=== PATIENT | female | born 1995 | race Caucasian/White ===

== ENCOUNTER 2018-02-04 18:03 | Observation (INO) ==
[2018-02-04 18:45] LABS: Bilirubin,Urine Small (Negative); Blood,Urine Negative (Negative); Clarity,Urine Clear (Clear); Color,Urine Dark Yellow (Yellow); Glucose,Urine (UA) Normal (Normal); Ketones,Urine Trace mg/dL (Negative); Leukocyte Esterase,Urine Small (Negative); Nitrite,Urine Negative (Negative); Protein,Urine Trace mg/dL (Neg-Trace); Specific Gravity,Urine 1.026 (1.010-1.025); Urobilinogen,Urine Normal (Normal)
[2018-02-04 18:47] LABS: Bacteria,Urine Many per hpf (None-Few); Hyaline Casts,Urine Few per lpf (None-Few); RBC,Urine 0-3 per hpf (0-3); Squamous Epithelial Cell,Urine Many per lpf (None-Few); WBC,Urine 15-30 per hpf (0-3)
[2018-02-04 19:04] LABS: Amphetamine Screen,Urine Negative ng/mL (Cutoff=1000); Barbiturate Screen,Urine Negative ng/mL (Cutoff=200); Benzodiazepines Screen,Urine Negative ng/mL (Cutoff=200); Cannabinoid Screen,Urine Negative ng/mL (Cutoff = 50); Cocaine Screen,Urine Negative ng/mL (Cutoff= 300); Opiate Screen,Urine Negative ng/mL (Cutoff=300); Phencyclidine Screen,Urine Negative ng/mL (Cutoff=25)
--- NOTE | 2018-02-04 19:04 | OB/GYN Progress Note ---
Date of Encounter: 02/04/18 Time of Encounter: 19:02 - Assessment and Plan (1) 24 weeks gestation of Status: Acute Admitted to observation for complaint of decreased movement, dizziness and headache. FHR appropriate for gestational age. (2) Decreased movement affecting management of Status: Acute Reports decreased movement today. Able to feel multiple movements while here. Qualifiers: Fetus number: single or unspecified fetus Trimester: second trimester Qualified Code(s): O36.8120 - Decreased movements, second trimester, not applicable or unspecified (3) Dizziness Status: Acute Patient reports dizziness throughout . Has been referred to neurology and cardiology for this complaint in the last couple of months. BP 100's over 50's and 60's while here. Discharge from OB service. Patient taken to ER for further evaluation of non-OB related complaints. Subjective - Subjective Principal diagnosis: Decreased movement, dizziness Interval history: Patient arrives with complaints of decreased movement today. Also complaints of dizziness regardless of activity. States she has had a headache today that has not resolved with Tylenol which she last took at 3:00. heart rate 140 bpm and appropriate for gestational age of 24 weeks and 6 days. She has had the complaints of headache and dizziness within the last couple of months. She has been referred to cardiology and had a Holter monitor plus EKG which returned normal. She is also been referred to neurology for the same complaints. The appointment for this is later this month. Previous workup for PIH returned with normal results. Patient felt movement while she was here on the monitor. She will be discharged from OB service and taken to ER for further evaluation. Antepartum ROS: no loss of fluid, no vaginal bleeding Objective - Vital Signs Vital Signs: Intake and Output 02/04/18 02/04/18 02/04/18 07:59 15:59 23:59 Other: Weight 68.039 kg Patient Weight 02/04/18 23:59 Weight 68.039 kg - Exam FHR: auscultation normal FHR comments: FHR 140 bpm, moderate variability. Appropriate for gestational age of 24wd. No uterine activity noted. Auscultation: bilateral: normal Abdomen: Present: normal appearance, soft, gravid Uterus: Present: normal Cervical dilation: deferred - Labs Labs: Abnormal lab results Ur Specific [place] 1.026 (1.010-1.025) H 02/04/18 18:30 Urine Ketones Trace mg/dL (Negative) H 02/04/18 18:30 Urine Bilirubin Small (Negative) H 02/04/18 18:30 Ur Leukocyte Esterase Small (Negative) H 02/04/18 18:30 Urine Microscopic WBC 15-30 per hpf (0-3) H 02/04/18 18:30 Ur Squamous Epith Cells Many per lpf (None-Few) H 02/04/18 18:30 Urine Bacteria Many per hpf (None-Few) H 02/04/18 18:30 Ur Culture Indicated? NO. (NO) A 02/04/18 18:30
== END 2018-02-04 18:45 | disposition home or self-care (01) ==
LOC: 1NENULAB
PROVIDERS: ADMIT Registered Nurse; ATTEND Registered Nurse

== ENCOUNTER → 2018-02-07 21:22 | Observation (INO) ==
[2018-02-07 19:42] LABS: Bilirubin,Urine Negative (Negative); Blood,Urine Negative (Negative); Clarity,Urine Cloudy (Clear); Color,Urine Yellow (Yellow); Glucose,Urine (UA) Normal (Normal); Ketones,Urine Negative (Negative); Leukocyte Esterase,Urine Small (Negative); Nitrite,Urine Negative (Negative); Protein,Urine Negative (Neg-Trace); Specific Gravity,Urine 1.016 (1.010-1.025); Urobilinogen,Urine Normal (Normal)
[2018-02-07 19:44] LABS: Bacteria,Urine Moderate per hpf (None-Few); Hyaline Casts,Urine None Seen per lpf (None-Few); Squamous Epithelial Cell,Urine Many per lpf (None-Few)
[2018-02-07 19:55] LABS: RBC,Urine 0-3 per hpf (0-3)
[2018-02-07 19:58] LABS: Amphetamine Screen,Urine Negative ng/mL (Cutoff=1000); Barbiturate Screen,Urine Negative ng/mL (Cutoff=200); Benzodiazepines Screen,Urine Negative ng/mL (Cutoff=200); Cannabinoid Screen,Urine Negative ng/mL (Cutoff = 50); Cocaine Screen,Urine Negative ng/mL (Cutoff= 300); Opiate Screen,Urine Negative ng/mL (Cutoff=300); Phencyclidine Screen,Urine Negative ng/mL (Cutoff=25)
--- NOTE | 2018-02-07 21:06 | Discharge Summary ---
Date of Encounter: 02/07/18 Time of Encounter: 21:07 - Discharge Diagnosis (1) 25 weeks gestation of Priority: Primary Status: Acute Comments: Admitted to observation for left upper quadrant pain No uterine activity noted on toco monitor. Appropriate FHT for gestation (2) Abdominal pain affecting Priority: Secondary Status: Acute - Discharge Medications Home Medications: Vitamin Tablet 1 tab PO DAILY 02/07/18 [History] Allergies/Adverse Reactions: Allergy/AdvReac Type Severity Reaction Status Date / Time Penicillins Allergy See Verified 06/15/17 10:46 Comments Data Procedures and tests throughout hospitalization: Laboratory Tests 02/07/18 02/07/18 19:30 19:30 Urine Color Yellow Urine Clarity Cloudy A Urine pH 7.0 Ur Specific [place] 1.016 Urine Protein Negative Urine Glucose (UA) Normal Urine Ketones Negative Urine Blood Negative Urine Nitrite Negative Urine Bilirubin Negative Urine Urobilinogen Normal Ur Leukocyte Esterase Small H Urine Microscopic RBC 0-3 Urine Microscopic WBC 5-15 H Ur Squamous Epith Cells Many H Urine Bacteria Moderate H Hyaline Casts None Seen Ur Culture Indicated? NO. A Urine Opiates Screen Negative Ur Barbiturates Screen Negative Ur Phencyclidine Scrn Negative Ur Amphetamines Screen Negative U Benzodiazepines Scrn Negative Urine Cocaine Screen Negative U Marijuana (THC) Screen Negative Ur Drug Screen Interp See Below Labs on day of discharge: Labs from last 24 hours 02/07/18 02/07/18 19:30 19:30 Urine Color Yellow Urine Clarity Cloudy A Urine pH 7.0 Ur Specific [place] 1.016 Urine Protein Negative Urine Glucose (UA) Normal Urine Ketones Negative Urine Blood Negative Urine Nitrite Negative Urine Bilirubin Negative Urine Urobilinogen Normal Ur Leukocyte Esterase Small H Urine Microscopic RBC 0-3 Urine Microscopic WBC 5-15 H Ur Squamous Epith Cells Many H Urine Bacteria Moderate H Hyaline Casts None Seen Ur Culture Indicated? NO. A Urine Opiates Screen Negative Ur Barbiturates Screen Negative Ur Phencyclidine Scrn Negative Ur Amphetamines Screen Negative U Benzodiazepines Scrn Negative Urine Cocaine Screen Negative U Marijuana (THC) Screen Negative Ur Drug Screen Interp See Below Date of admission: 02/07/18 18:30 Discharging clinician: Renetta Hathaway Anticipated date of discharge: 02/07/18 - Patient Status Disposition: Home, Self-Care Condition: Good Functional capacity at discharge: independent ambulation Overall status at discharge: patient is back to baseline - Discharge Instructions - Diet and Activity Activity: resume usual activities as tolerated Diet: regular diet Hospital Course [employer] Hospital course: Tonie reports to L&D this evening with complaint of left upper quadrant pain that started yesterday and has been getting worse. She reports positive activity and denies bleeding and fluid leakage. She reports she hasn't eaten much today due to the pain but denies any nausea or vomiting. Entire abdomen palpated without rebound tenderness or guarding. Plan discussed with Dr. Kaye, to send patient home. Time Attestation: Total time spent providing and/or coordinating discharge services: Time Spent: Less than 30 minutes Exam - Constitutional General appearance IM: A&O X 3, pleasant, no acute distress, answers questions appropriately - Respiratory Respiratory exam: Present: CTAB - Cardiovascular Cardiovascular exam IM: Present: RRR, +S1, +S2 - GI/Abdominal GI/Abdominal exam IM: normal bowel sounds, soft Additional comments: No rebound tenderness. Patient without guarding while entire abdomen palpated. - Rectal Rectal exam: deferred - Extremities Exam Extremities exam IM: Present: full ROM, normal capillary refill, normal inspection - Neurological Exam Neurological exam: alert, normal gait, oriented X3 - VTE Reasons for not Prescribing Prophylaxis: Treatment not Indicated - Low risk for VTE
== END | disposition home or self-care (01) ==
LOC: 1NENULAB
PROVIDERS: ADMIT Registered Nurse; ATTEND Registered Nurse

== ENCOUNTER → 2018-03-26 00:50 | Observation (INO) ==
[2018-03-25 16:19] LABS: Bilirubin,Urine Negative (Negative); Blood,Urine Negative (Negative); Clarity,Urine Cloudy (Clear); Color,Urine Yellow (Yellow); Glucose,Urine (UA) Normal (Normal); Ketones,Urine Negative (Negative); Leukocyte Esterase,Urine Trace (Negative); Nitrite,Urine Negative (Negative); Protein,Urine Trace mg/dL (Neg-Trace); Specific Gravity,Urine 1.014 (1.010-1.025); Urobilinogen,Urine Normal (Normal)
[2018-03-25 16:22] LABS: Bacteria,Urine Moderate per hpf (None-Few); Hyaline Casts,Urine None Seen per lpf (None-Few); RBC,Urine 0-3 per hpf (0-3); Squamous Epithelial Cell,Urine Many per lpf (None-Few)
[2018-03-25 16:28] LABS: Amphetamine Screen,Urine Negative ng/mL (Cutoff=1000); Barbiturate Screen,Urine Negative ng/mL (Cutoff=200); Benzodiazepines Screen,Urine Negative ng/mL (Cutoff=200); Cannabinoid Screen,Urine Negative ng/mL (Cutoff = 50); Cocaine Screen,Urine Negative ng/mL (Cutoff= 300); Opiate Screen,Urine Negative ng/mL (Cutoff=300); Phencyclidine Screen,Urine Negative ng/mL (Cutoff=25)
--- NOTE | 2018-03-25 19:00 | OB/GYN History & Physical ---
Date of Encounter: 03/25/18 Time of Encounter: 18:54 Assessment and Plan (1) 31 weeks gestation of Current visit: Yes Status: Acute (2) labor in second trimester Current visit: Yes Status: Acute Patient initially evaluated cervix was 1-2/75/-3, discuss plan of care with Dr. Houston, steroid course started, fluid bolus and dose of betamethasone given. Repeat cervical exam after 2 hours cervix had changed to 3/80/-3, discussed with Dr. Houston due to cervical change will transfer to [facility]. Plan of care discussed with who accepted patient for transfer. Dr. Morris requests magnesium for neuro protection be started with 6 g bolus followed by 2 g an hour and GBS protocol initiated, due to penicillin allergy with unknown reaction as a child will start vancomycin 1 g Qualifiers: labor delivery status: without delivery Qualified Code(s): O60.02 - labor without delivery, second trimester History of Present Illness Chief complaint: contractions HPI: Ms. Guerra is a 22 year old female 31+6 presents to [facility] with complaints of left hip and occasional abdominal pain, and thinks she lost her mucous plug and pressure. Last intercourse last night, reports good movement, denies vaginal bleeding or leaking of fluid, denies dysuria, flank pain, or any other urinary symptoms. care with nurse midwives uncomplicated course Labs: AB+, rubella and varicella immune, all other serologies negative Past Med Surg Social Fam HX - Past Medical History Medical history: no medical history Additional medical history: vag delivery x2 Psychiatric history: anxiety, ADHD, depression - Past Surgical History Surgical History: no surgical history, other Additional surgical history: [place] teeth, tooth extraction - Social History Smoking Status: Never smoker Smokeless Tobacco Status: No Alcohol use: none Drug use: none - Family History Mother Adopted: No Living Status: Still Living Hx Family Cardiac Disorders: Yes (HTN) Hx Family Respiratory Disorders: Yes (Asthma) Hx Family Cancer: No Hx Family GI Disorders: No Hx Family Endocrine Disorder: Yes (DM) Hx Family Neuromuscular Disorders: No Hx Family Neurologic Disorders: Yes ([place]) Hx Family HEENT Disorders: No Hx Family Autoimmune Disorders: No Obstetrical History - Pregnancies : 4 Para: 2 Term: 2 : 0 Ab's: 1 Livin Medications and Allergies Ondansetron ODT [Zofran ODT] 4 mg SL Q6HR PRN #10 tab.rapdis 02/11/18 [Rx] Pediatric Multivit Comb. No.49 [Flintstones Gummies] 1 tab PO DAILY 03/25/18 [History] Allergy/AdvReac Type Severity Reaction Status Date / Time Penicillins Allergy See Verified 06/15/17 10:46 Comments Exam - Constitutional Constitutional: well developed, well nourished, no acute distress, average body habitus - Neck Neck exam: full ROM - Lungs Respiratory exam: CTAB - Cardiovascular Cardiovascular exam: RRR - Abdomen Abdomen: Present: gravid, non tender - Extremities Extremities exam: normal capillary refill, normal inspection - Vagina Vagina: Present: normal moisture - Cervix Dilation: 3 Effacement: 80 Station: -3 - Anus/Rectum Anus/Rectum: Present: normal perianal skin Results Abnormal lab results Urine Clarity Cloudy (Clear) A 03/25/18 16:05 Ur Leukocyte Esterase Trace (Negative) H 03/25/18 16:05 Urine Microscopic WBC 3-5 per hpf (0-3) H 03/25/18 16:05 Ur Squamous Epith Cells Many per lpf (None-Few) H 03/25/18 16:05 Urine Bacteria Moderate per hpf (None-Few) H 03/25/18 16:05 Ur Culture Indicated? NO. (NO) A 03/25/18 16:05 All other labs normal. - VTE Reasons for not Prescribing Prophylaxis: Treatment not Indicated - Low risk for VTE
[~2018-03-26 00:50] MED LIST: Betamethasone Acet/SodPhos 6 MG/ML MDV IM SCH; Magnesium Sulfate 20 gm/500mL 20 GM/500 ML IV.SOLN IVC SCH; Ringers Solution, Lactated 1,000 ML IVC ONE; Ringers Solution, Lactated 1,000 ML ONE; Terbutaline 1 MG/ML VIAL SQ ONE
== END | disposition other institution (70) ==
LOC: 1NENULAB
PROVIDERS: ADMIT Advanced Practice Midwife; ATTEND Advanced Practice Midwife

== ENCOUNTER 2018-04-14 22:15 | Observation (INO) ==
[2018-04-14 22:38] VITALS: BP 124/63
[2018-04-14 22:43] LABS: Bilirubin,Urine Negative (Negative); Blood,Urine Negative (Negative); Clarity,Urine Clear (Clear); Color,Urine Yellow (Yellow); Glucose,Urine (UA) Normal (Normal); Ketones,Urine Negative (Negative); Leukocyte Esterase,Urine Moderate (Negative); Nitrite,Urine Negative (Negative); Protein,Urine Negative (Neg-Trace); Specific Gravity,Urine < 1.005 (1.010-1.025); Urobilinogen,Urine Normal (Normal)
[2018-04-14 22:45] LABS: Bacteria,Urine Few per hpf (None-Few); Hyaline Casts,Urine None Seen per lpf (None-Few); RBC,Urine 0-3 per hpf (0-3); Squamous Epithelial Cell,Urine Moderate per lpf (None-Few)
--- NOTE | 2018-04-14 22:50 | OB/GYN Progress Note ---
Date of Encounter: 04/14/18 Time of Encounter: 22:47 - Assessment and Plan (1) 34 weeks gestation of Current Visit: Yes Status: Acute admitted for observation (2) NST (non-stress test) reactive on surveillance Current Visit: Yes Status: Acute FHR 125 bpm moderate variability +15x15 accels no decels noted. Irregular contractions noted. Cat. 1 tracing. Subjective - Subjective Principal diagnosis: Vaginal pressure and irregular contractions Interval history: Patient is a 22 y/o @ 34w5d presents to labor and delivery with complaints of vaginal pressure and contractions that are 11-13 min apart. Patient denies LOF or VB. Patient reports on March 25 she was sent to [facility] for labor and was dilated 3cm. Patient reports she received betamethasone on 03/25 and 03/26. Patient reports good movement. Patient denies urinary symptoms. Antepartum ROS: movement normal, contractions, no loss of fluid, no vaginal bleeding Objective - Vital Signs Vital Signs: Vital Signs Pulse Resp BP 04/14/18 22:34 105 15 124/63 Intake and Output 04/14/18 04/14/18 04/14/18 07:59 15:59 23:59 Other: Weight 75.5 kg Patient Weight 04/14/18 23:59 Weight 75.5 kg - Exam FHR: auscultation normal, category 1 FHR comments: 125 bpm moderate variability +15x15 accels no decels noted. Irregular contractions with irritability noted. Cat. 1 tracing. Auscultation: bilateral: normal Abdomen: Present: normal appearance, soft, gravid Uterus: Present: normal, firm Cervical dilation: 3 per RN Cervix effacement: 70 station: bollatable Comments: GBS culture collected prior to exam. - Labs Labs: Abnormal lab results Ur Specific [place] < 1.005 (1.010-1.025) L 04/14/18 22:20 Ur Leukocyte Esterase Moderate (Negative) H 04/14/18 22:20 Urine Microscopic WBC 5-15 per hpf (0-3) H 04/14/18 22:20 Ur Squamous Epith Cells Moderate per lpf (None-Few) H 04/14/18 22:20 Ur Culture Indicated? YES (NO) A 04/14/18 22:20
[2018-04-14 22:54] LABS: Amphetamine Screen,Urine Negative ng/mL (Cutoff=1000); Barbiturate Screen,Urine Negative ng/mL (Cutoff=200); Benzodiazepines Screen,Urine Negative ng/mL (Cutoff=200); Cannabinoid Screen,Urine Negative ng/mL (Cutoff = 50); Cocaine Screen,Urine Negative ng/mL (Cutoff= 300); Opiate Screen,Urine Negative ng/mL (Cutoff=300); Phencyclidine Screen,Urine Negative ng/mL (Cutoff=25)
== END 2018-04-15 01:00 | disposition home or self-care (01) ==
LOC: 1NENULAB
PROVIDERS: ADMIT Advanced Practice Midwife; ATTEND Advanced Practice Midwife

== ENCOUNTER 2018-05-17 09:42 | Inpatient (IN) ==
[2018-05-17] MEDS ORDERED: Famotidine 20 MG/2 ML VIAL IVP PRN (10:25)
[2018-05-17] MEDS ORDERED: Metoclopramide 10 MG/2 ML VIAL IVP PRN ×2 (10:25→16:11)
[2018-05-17] MEDS ORDERED: Ringers Solution, Lactated 1,000 ML IVC SCH (10:30)
[2018-05-17 10:49] LABS: Basophils # 0.1 K/mcL (0.0-0.2); Basophils % 0.6 %; Eosinophils # 0.2 K/mcL (0.0-0.6); Eosinophils % 1.5 %; Hemoglobin 11.5 g/dL (11.5-15.4); Immature Granulocytes % 1.8 % (0-4); Lymphocytes # 2.9 K/mcL (0.6-4.6); Lymphocytes % 23.9 %; Mean Corpuscular HGB Conc 32.9 g/dL (31.6-35.5); Mean Corpuscular Volume 85.4 fL (83.0-100.0); Mean Platelet Volume 11.8 fL (9.4-12.4); Monocytes # 0.9 K/mcL (0.0-1.3); Neutrophils # 7.9 K/mcL (1.6-8.9); Platelet Count 185 K/mcL (140-400); Red Cell Distribution Width 13.9 % (11.5-14.5); Segmented Neutrophils % 65.2 %
--- NOTE | 2018-05-17 10:54 | Anesthesia Evaluation PreOp ---
Date of Encounter: 05/17/18 Time of Encounter: 10:52 - Past History Planned Operation: C section Cardiac History: Denies any Significant Hx Pulmonary History: Denies Any Significant HX CONTACT LENS FLASHING PUNCHER History: Denies Any Significant HX Other Medical History: GERD Anesthesia History: No Prior Anesthetic Complications : Yes Test: Positive Alcohol Use: none Drug use: none Medications and Allergies Ondansetron ODT [Zofran ODT] 4 mg SL Q6HR PRN #10 tab.rapdis 02/11/18 [Rx] Pediatric Multivit Comb. No.49 [Flintstones Gummies] 1 tab PO DAILY 03/25/18 [History] Benadryl 50 mg PO HS 05/17/18 [History] Allergy/AdvReac Type Severity Reaction Status Date / Time Penicillins Allergy See Verified 06/15/17 10:46 Comments - Meds/Allergy Pre-op Review Medications Reviewed: Yes Allergies Reviewed: Yes Beta Blockers on Current Med List: No Anesthesia Results - Labs 05/17/18 10:12 Anesthesia Exam 109/76 108 16 fht 166 Height: 5'2" Weight: 77k NPO (# of Hours): 12 Pain Scale: 1 Pain Scale Used: Numeric (1 - 10) - HEENT Pupil (Motor): Pupils equal Mallampati: II Teeth: Normal Oral Opening: Greater than 3 - CONTACT LENS FLASHING PUNCHER LOC: Oriented CONTACT LENS FLASHING PUNCHER Motor: Normal RUE, Normal LUE, Normal RLE, Normal LLE, Normal Face CONTACT LENS FLASHING PUNCHER Sensory: Normal: RUE, LUE, RLE, LLE, Face - Cardiac Rhythm: Regular Murmur: None - Pulmonary Breath Sounds: bilateral Clear Respiratory Effort: Symmetrical Anesthesia Assess/Plan ASA Score: 2 Level of consciousness: Cooperative Anesthetic Plan: Spinal (risks discussdd questions answered, consented)
[2018-05-17 10:55] LABS: Amphetamine Screen,Urine Negative ng/mL (Cutoff=1000); Barbiturate Screen,Urine Negative ng/mL (Cutoff=200); Benzodiazepines Screen,Urine Negative ng/mL (Cutoff=200); Cannabinoid Screen,Urine Negative ng/mL (Cutoff = 50); Cocaine Screen,Urine Negative ng/mL (Cutoff= 300); Opiate Screen,Urine Negative ng/mL (Cutoff=300); Phencyclidine Screen,Urine Negative ng/mL (Cutoff=25)
[2018-05-17] MEDS ORDERED: *HR* Morphine Sulfate/PF 10 MG/10 ML AMPUL ONE (10:56)
[2018-05-17] MEDS ORDERED: *HR* Oxytocin 10 UNIT/ML VIAL IM ONE (10:57)
[2018-05-17] MEDS ORDERED: Lidocaine -MPF 2% 5 ML VIAL ONE (10:57)
[2018-05-17] MEDS ORDERED: *HR* FentaNYL (PF) 100 MCG/2 ML VIAL ONE (10:57)
[2018-05-17] MEDS ORDERED: Clindamycin 900 MG/50 ML 900 MG/50 ML IV.SOLN IVPB ONE (11:20)
[2018-05-17] MEDS ORDERED: Gentamicin 300 MG in 0.9 % Sodium Chloride 100 ML IVPB ONE (11:21)
--- NOTE | 2018-05-17 11:56 | OB/GYN History & Physical ---
Date of Encounter: 05/17/18 Time of Encounter: 11:51 Assessment and Plan (1) 39 weeks gestation of Current visit: Yes Status: Acute Admit to L&D and proceed with a primary elective section. Preop antibiotics of clindamycin 900 mg times one dose and gentamicin 5 mg per Kg with adjusted dosing based ideal body weight. Continuous electronic monitoring and toco prior to the OR. FHT: 140/mod any/+accels/no decels, Cat 1 FHR Tracing TOCO: irreg, q 5-7 mins, Pt comfortable (2) Delivery by elective section Current visit: Yes Status: Acute History of Present Illness Chief complaint: Elective Primary HPI: Ms. Guerra is a 22 year old at 30 9.3W GA by LMP consistent with a first trimester ultrasound. She presents for an elective primary section due to worsening severe left hip pain. We discussed the risks, benefits and alternatives in the office. We again reviewed the risks, benefits and alternatives today. She wishes to proceed with a primary elective section. She is feeling contractions off and on for the past week or 2. She is not uncomfortable with them. Outside of her left hip pain she denies any other complications with this She is currently feeling baby move and denies vaginal bleeding, leakage of fluid, abnormal vaginal discharge, dysuria, or any other obstetrical complaints. Past Med Surg Social Fam HX - Past Medical History Source: patient Medical history: no medical history Additional medical history: vag delivery x2 Psychiatric history: no psych history - Past Surgical History Surgical History: no surgical history, other Additional surgical history: [place] teethx4 in 2013, tooth extraction x1 in 2013 - Social History Smoking Status: Never smoker Smokeless Tobacco Status: No Alcohol use: none Drug use: none Current living situation: Home - Independent Activity Level: Independent ambulation Recent Out of Country Travel Within the Last 8 Weeks: No Exposure or Possible Exposure to Illness During Travel: No - Family History Mother Adopted: No Living Status: Still Living Hx Family Cardiac Disorders: Yes (hypertension) Hx Family Respiratory Disorders: Yes (copd) Hx Family Cancer: No Hx Family GI Disorders: No Hx Family Endocrine Disorder: No Hx Family Neuromuscular Disorders: No Hx Family Neurologic Disorders: No Hx Family HEENT Disorders: No Hx Family Autoimmune Disorders: No - Additional Family History Additional family history: The patient denies any family history of breast, uterine, ovarian or cervical cancer. Obstetrical History - Pregnancies : 4 Para: 2 Term: 2 ( x 2) : 0 Ab's: 1 (SAB, no D&C) Livin - History/Complications History/Complications: Denies history of STI's or abnormal Pap smears. LMP of 08/14/2017 Medications and Allergies Ondansetron ODT [Zofran ODT] 4 mg SL Q6HR PRN #10 tab.rapdis 02/11/18 [Rx] Pediatric Multivit Comb. No.49 [Flintstones Gummies] 1 tab PO DAILY 03/25/18 [History] Benadryl 50 mg PO HS 05/17/18 [History] Allergy/AdvReac Type Severity Reaction Status Date / Time Penicillins Allergy See Verified 06/15/17 10:46 Comments Review of System OB All systems PM: reviewed and no additional remarkable complaints except as stated (All other systems reviewed with the patient and negative outside of history of present illness) Exam - Constitutional Constitutional: well developed, well nourished, no acute distress, average body habitus - HEENT HEENT: Normocephaly - Neck Neck exam: full ROM - Lungs Respiratory exam: CTAB - Cardiovascular Cardiovascular exam: RRR, +S1, +S2 - Abdomen Abdomen: Present: bowel sounds normal, gravid, non tender - Extremities Extremities exam: pedal edema (1+) Results Result Diagrams: 05/17/18 10:12 Abnormal lab results WBC 12.2 K/mcL (4.3-11.1) H 05/17/18 10:12 Hct 35.0 % (35.3-44.9) L 05/17/18 10:12 All other labs normal. - VTE Reasons for not Prescribing Prophylaxis: Treatment not Indicated - Low risk for VTE (SCDs post-op until ambulating)
[2018-05-17] MEDS ORDERED: EPHEDrine 50 MG/ML VIAL ONE (12:24)
--- NOTE | 2018-05-17 12:45 | Anesthesia Procedures ---
Date of Encounter: 05/17/18 Time of Encounter: 12:41 Procedures: Anesthesia - Epidural/Spinal Patient ID/Chart reviewed: Yes Patient examined: Yes OB Eval: Gestational age: 39 OB Eval: : 4 OB Eval: Hx Para: 2 OB Eval: Dilated at (cm): 2 OB Eval: Contractions: Non-stressed pattern Consent Obtained: Yes Supplemental Oxygen: Nasal Cannula Supplemental Oxygen Rate (L/min): 3 Site Prep: Aseptic Technique, Sterile prep and drape, 0.5% Chlorhexidine/Alcohol Patient position: upright Local Anesthetic: Lidocaine 1% Amount of Local Anesthetic used: 3 Interspace Used: L2-L3 Loss of Resistance (JORGE): No Blood: No CSF: Yes Paresthesia: No Spinal Needle Gauge: 25 Spinal Dose: marcaine 10 mg, duramorph 0.25 fent 10 mcg Procedure: aseptic, bianca well, VSS, effective Vitals + FHT's: 110/78 88 16 fht 155
[2018-05-17] MEDS ORDERED: Acetaminophen IV 1,000 MG/100 ML INFUS..BTL IVPB ONE (12:48)
[2018-05-17] MEDS ORDERED: Ondansetron 4 MG/2 ML VIAL IVP PRN ×3 (12:48→22:05)
[2018-05-17] MEDS ORDERED: *HR* HYDROmorphone (PF) 1 MG/ML SYRINGE IVP PRN (12:48)
[2018-05-17] MEDS ORDERED: *HR* Meperidine 25 MG/ML SYRINGE IVP PRN (12:48)
[2018-05-17] MEDS ORDERED: *HR* OxyCODONE Immed Rel 5 MG TABLET PO PRN (12:48)
[2018-05-17] MEDS ORDERED: Oxytocin 20 units/ LR 1000 mL 20 UNIT/1,000 ML BAG IVC ONE (13:50)
--- NOTE | 2018-05-17 14:08 | OB/GYN Procedure Note ---
Section - Date of procedure: 05/17/18 Preop diagnosis: other (1. Elective primary section 2. 39.3 weeks gestational age 3. Left hip pain) Post-op diagnosis: same Procedure: section, primary low transverse Surgeon: Olena Mendoza Quantitated Blood Loss: 350 Was there an press assistant present: Yes Industrial Order Clerk: Zenobia Hartley Video System Repairer: Vel Lima Anesthesia Type: Spinal section complications: none Disposition: L&D Recovery Room Specimens: Placenta - (s) A Delivery Date: 05/17/18 Infant Delivery Time: 12:41 Presentation: vertex Position: ROT Gender: Female Viability: Viable Pounds: 7 Ounces: 12 Gram Weight: 3.525 kg at 1 minute: 9 at 5 minutes: 10 Shoulder Dystocia: not encountered Placenta: spontaneous Cord: 3 umbilical vessels - Narrative Narrative: Operation Performed Primary Low Transverse Section Indication for Surgery 22yo at 39.3 wga by LMP consistent with first trimester ultrasound. The patient presented to labor and delivery for an elective primary section due to severe and worsening left hip pain. The patient stated that this left hip pain was refractory to therapy and she could not hold her legs back to deliver vaginally. We reviewed the risks, benefits and alternatives and clinic. On labor and delivery we again reviewed the alternatives, risks and benefits of a section. Risks included but were not limited to bleeding, infection, injury to the presenting part of the fetus, injury to the bladder, bowel, ureters and the surrounding neurovasular bundles. The patient expressed understanding of the risks involved. All questions were answered and the patient consented to the procedure. Preoperative Diagnosis 1. IUP @ 39.3 wga 2. ELective Section 3. Left Hip Pain Postoperative Diagnosis Same Surgeon Olena Mendoza DLindaOLinda Industrial Order Clerk(s) Dr. Melina Hartley Anesthesia Spinal with Duramorph Estimated Blood Loss 30 mL Urine Output 80 mL of clear yellow urine IV Fluids 1000 mL crystalloid Specimen(s) Placenta on hold Findings Live female infant, weighing 7 pounds and 12 ounces, with APGARS of 9/10. Complications None Technique The patient was taken to the operating room where a timeout was performed to confirm correct patient and correct procedure. Preoperative antibiotics were administered and spinal anesthesia was found to be adequate. The patient was prepped and draped in the usual sterile fashion for a section, in supine position with a leftward tilt of the hips. A Pfannenstiel skin incision was made with a scalpel. Dissection to the fascia was carried out using blunt and sharp dissection, followed by the Bovie electrocautery for hemostasis. The fascia was incised with a scalpel and the incision was extended laterally using curved Palma scissors. Irene clamps were used to tent up the inferior edge of the fascia and the underlying rectus muscles were dissected off using blunt dissection. Attention was then turned to the superior fascial edge and dissection carried out in a similar manner. The rectus muscles were then in the midline and the peritoneum was entered using blunt and sharp di ssection. The peritoneum was grasped with hemostats at the superior aspect, care was taken to avoid the bladder, and bluntly entered, dissecting with hemostats. The peritoneal opening was extended using lateral traction. A bladder blade was inserted, the vesicoperitoneal reflection was identified, and a bladder flap was created using Metzenbaum scissors and blunt dissection. The bladder blade was then replaced to protect the bladder. The lower uterine segment was incised with a scalpel in transverse fashion. The hysterotomy was extended laterally with blunt traction in cephalad and caudad directions. An Allis clamp was used to rupture the membranes and clear fluid was noted. The fetus was in vertex presentation. The surgeon's hand was placed under the infant's head and the infant delivered through the hysterotomy with the assistance of fundal pressure. The mouth and nose were bulb suctioned and the cord was clamped 2 and cut. The infant was safely transferred to the [facility] or further care by the admissions counselor. The placenta, with three-vessel cord, was expressed intact. The uterus was wiped clean of clots and debris before closing the hysterotomy with a running locked 0 Vicryl suture. A second imbricating layer of the same suture was placed for hemostasis. A single [id number] stitch was placed and excellent hemostasis obtained. The fascia was closed using Stratafix suture in a running nonlocked fashion. The skin was closed with a subcuticular stitch of 4-0 Vicryl. At the end of the procedure, all needle sponge and instrument counts were noted to be correct 2. The patient tolerated the procedure well and was transferred to the recovery room in stable condition.
[2018-05-17] MEDS ORDERED: Oxytocin 20 units/ LR 1000 mL 20 UNIT/1,000 ML BAG IVC SCH (16:11)
[2018-05-17] MEDS: Ibuprofen 600 MG TABLET PO SCH (17:45)
[2018-05-17] MEDS: Acetaminophen 325 MG TABLET PO SCH (17:49)
[2018-05-17] MEDS: Simethicone 80 MG TAB.CHEW PO SCH ×2 (18:28→20:24)
--- NOTE | 2018-05-17 18:54 | Anesthesia Evaluation Post Op ---
Date of Encounter: 05/17/18 Time of Encounter: 16:00 - Vital Signs Vital Signs: Vital Signs/O2 Sat, Most Current Temp Pulse Resp BP Pulse Ox 97.9 F 84 18 112/78 98 05/17/18 17:57 05/17/18 17:57 05/17/18 17:57 05/17/18 17:57 05/17/18 17:57 - Lungs Lungs: Clear Ascult./Percussion - Airway Airway: Non-obstructed - Cardiovascular Regular Rate - Mental Status Mental Status: Alert & Oriented, Answers Appropriately - Pain Pain Scale: 3 Pain Scale used: Numeric (1 - 10) - Nausea Vomiting Nausea Vomiting: Not Present - Hydration Hydration: Zuñiga catheter - Discharge PostOp Status: Transfer Patient to floor
[2018-05-18] MEDS: Ibuprofen 600 MG TABLET PO SCH ×4 (00:11→23:17)
[2018-05-18] MEDS: Acetaminophen 325 MG TABLET PO SCH ×3 (00:11→23:18)
[2018-05-18 07:08] LABS: Basophils % 0.2 %; Eosinophils # 0.1 K/mcL (0.0-0.6); Hematocrit 29.1 % (35.3-44.9); Immature Granulocytes % 0.9 % (0-4); Lymphocytes # 1.4 K/mcL (0.6-4.6); Lymphocytes % 9.9 %; Mean Corpuscular Hemoglobin 27.1 pg (28.0-33.3); Mean Corpuscular Volume 84.8 fL (83.0-100.0); Mean Platelet Volume 11.8 fL (9.4-12.4); Monocytes # 0.9 K/mcL (0.0-1.3); Monocytes % 6.3 %; Neutrophils # 11.3 K/mcL (1.6-8.9); Platelet Count 134 K/mcL (140-400); Red Blood Count 3.43 M/mcL (3.82-4.97); Red Cell Distribution Width 13.7 % (11.5-14.5); Segmented Neutrophils % 81.7 %
[2018-05-18 07:10] LABS: Hemoglobin 9.3 g/dL (11.5-15.4)
[2018-05-18] MEDS: Prenatal Vit/FA 1 EACH TABLET PO SCH (08:10)
[2018-05-18] MEDS: Simethicone 80 MG TAB.CHEW PO SCH ×2 (08:10→19:44)
--- NOTE | 2018-05-18 09:23 | OB/GYN Progress Note ---
Date of Encounter: 05/18/18 Time of Encounter: 09:21 - Assessment and Plan (1) S/P section Current Visit: Yes Status: Acute Stable POD#1 Continue current management Anticipate discharge tomorrow Subjective - Subjective Interval history: Feels well, pain well managed on po pain medication, tolerating diet, + flatus, bottlefeeding Patient reports: appetite normal, voiding normally, pain well controlled, ambulating normally : doing well Objective - Vital Signs Latest vital signs: Vital Signs Temp Pulse Pulse Resp BP Pulse Ox 05/18/18 08:15 88 16 05/18/18 07:59 98 F 89 16 97/65 96 05/18/18 04:45 97.9 F 101 14 96/62 97 05/18/18 00:00 98.0 F 92 18 100/64 96 05/17/18 19:30 97.8 F 95 16 105/64 96 05/17/18 19:00 97.6 F 80 18 112/72 98 05/17/18 17:57 97.9 F 84 18 112/78 98 05/17/18 17:00 98.1 F 77 18 105/79 98 05/17/18 16:33 97.4 F L 100 16 114/75 97 05/17/18 16:00 97.5 F L 88 16 107/74 96 Intake and Output 05/17/18 05/18/18 05/18/18 23:59 07:59 15:59 Intake Total 240 / 240 1815 / 1815 250 / 250 Output Total 700 / 700 1150 / 1150 Balance -460 / -460 665 / 665 250 / 250 Intake: IV Fluids 825 / 825 Pitocin 20 unit In 1,000 ml @ 0 825 / 825 mls/hr IVC .[facility] Rx#: [id number] Oral 240 / 240 990 / 990 250 / 250 Output: Urine 800 / 800 Emesis 200 / 200 Catheter 500 / 500 350 / 350 Other: Meal Breakfast Percent of Meal Consumed 5% Weight 79.4 kg 75.705 kg Patient Weight 05/18/18 23:59 Weight 75.705 kg - Exam Lungs: bilateral: normal Chest: Normal S1, Normal S2 Extremities: Present: normal Abdomen: Present: normal appearance, soft Incision: Present: normal, dry, intact Uterus: Present: firm (U) - Labs Labs: Laboratory Results - last 24 hr 05/17/18 05/17/18 05/18/18 10:12 10:12 06:34 WBC 12.2 H 13.9 H RBC 4.10 3.43 L Hgb 11.5 9.3 L D Hct 35.0 L 29.1 L MCV 85.4 84.8 MCH 28.0 27.1 L MCHC 32.9 32.0 RDW 13.9 13.7 Plt Count 185 134 L MPV 11.8 11.8 Immature Gran % 1.8 0.9 Seg Neutrophils % 65.2 81.7 Lymphocytes % 23.9 9.9 Monocytes % 7.0 6.3 Eosinophils % 1.5 1.0 Basophils % 0.6 0.2 Neutrophils # 7.9 11.3 H Lymphocytes # 2.9 1.4 Monocytes # 0.9 0.9 Eosinophils # 0.2 0.1 Basophils # 0.1 0.0 Urine Opiates Screen Negative Ur Barbiturates Screen Negative Ur Phencyclidine Scrn Negative Ur Amphetamines Screen Negative U Benzodiazepines Scrn Negative Urine Cocaine Screen Negative U Marijuana (THC) Screen Negative Ur Drug Screen Interp See Below
[2018-05-18] MEDS: *HR* OxyCODONE/APAP 5/325 TABLET PO PRN ×2 (12:49→21:04)
[2018-05-19] MEDS: Acetaminophen 325 MG TABLET PO SCH (06:41)
[2018-05-19] MEDS: Ibuprofen 600 MG TABLET PO SCH (06:41)
[2018-05-19 07:02] LABS: Basophils # 0.1 K/mcL (0.0-0.2); Basophils % 0.4 %; Eosinophils # 0.3 K/mcL (0.0-0.6); Eosinophils % 1.9 %; Hematocrit 28.8 % (35.3-44.9); Hemoglobin 9.1 g/dL (11.5-15.4); Immature Granulocytes % 2.1 % (0-4); Lymphocytes # 3.1 K/mcL (0.6-4.6); Lymphocytes % 24.2 %; Mean Corpuscular HGB Conc 31.6 g/dL (31.6-35.5); Mean Corpuscular Hemoglobin 27.1 pg (28.0-33.3); Mean Corpuscular Volume 85.7 fL (83.0-100.0); Mean Platelet Volume 11.3 fL (9.4-12.4); Monocytes # 0.9 K/mcL (0.0-1.3); Monocytes % 6.5 %; Neutrophils # 8.4 K/mcL (1.6-8.9); Nucleated Red Blood Cells 0.2 /100 WBC (0); Platelet Count 168 K/mcL (140-400); Red Blood Count 3.36 M/mcL (3.82-4.97); Red Cell Distribution Width 14.4 % (11.5-14.5); Segmented Neutrophils % 64.9 %
[2018-05-19] MEDS: Prenatal Vit/FA 1 EACH TABLET PO SCH (08:38)
[2018-05-19] MEDS: Simethicone 80 MG TAB.CHEW PO SCH (08:38)
[2018-05-19 09:19] VITALS: BP 102/64
--- NOTE | 2018-05-19 11:10 | Discharge Summary ---
Date of Encounter: 05/19/18 Time of Encounter: 11:02 - Discharge Diagnosis (1) S/P section Priority: Primary Status: Acute Comments: Pt meeting all post-op milestones. Pain improved with gas-x. Tolerating regular diet, ambulating without difficulty, passing flatus. - Discharge Medications Prescriptions: New Acetaminophen [Tylenol] 975 mg PO Q6HR tablet Ibuprofen [Motrin] 600 mg PO Q6HR #60 tablet OxyCODONE/APAP 5/325 [Percocet 5/325 MG] 1 each PO Q6HR PRN 7 Days #28 tablet PRN Reason: Severe Pain Ferrous Sulfate 325 mg PO DAILY #30 tablet Docusate [Colace] 100 mg PO BID #60 capsule Simethicone [Gas-X] 80 mg PO TID tab.chew Continue Ondansetron ODT [Zofran ODT] 4 mg SL Q6HR PRN #10 tab.rapdis PRN Reason: Nausea And Vomiting Pediatric Multivit Comb. No.49 [Flintstones Gummies] 1 tab PO DAILY Discontinued Benadryl 50 mg PO HS Home Medications: Ondansetron ODT [Zofran ODT] 4 mg SL Q6HR PRN #10 tab.rapdis 02/11/18 [Rx] Pediatric Multivit Comb. No.49 [Flintstones Gummies] 1 tab PO DAILY 03/25/18 [History] Acetaminophen [Tylenol] 975 mg PO Q6HR tablet 05/19/18 [Rx] Docusate [Colace] 100 mg PO BID #60 capsule 05/19/18 [Rx] Ferrous Sulfate 325 mg PO DAILY #30 tablet 05/19/18 [Rx] Ibuprofen [Motrin] 600 mg PO Q6HR #60 tablet 05/19/18 [Rx] OxyCODONE/APAP 5/325 [Percocet 5/325 MG] 1 each PO Q6HR PRN 7 Days #28 tablet 05/19/18 [Rx] Simethicone [Gas-X] 80 mg PO TID tab.chew 05/19/18 [Rx] Allergies/Adverse Reactions: 3 Allergy/AdvReac Type Severity Reaction Status Date / Time Penicillins Allergy See Verified 06/15/17 10:46 Comments Data Procedures and tests throughout hospitalization: Laboratory Tests 05/17/18 05/17/18 05/18/18 10:12 10:12 06:34 WBC 12.2 H 13.9 H RBC 4.10 3.43 L Hgb 11.5 9.3 L D Hct 35.0 L 29.1 L MCV 85.4 84.8 MCH 28.0 27.1 L MCHC 32.9 32.0 RDW 13.9 13.7 Plt Count 185 134 L MPV 11.8 11.8 Immature Gran % 1.8 0.9 Seg Neutrophils % 65.2 81.7 Lymphocytes % 23.9 9.9 Monocytes % 7.0 6.3 Eosinophils % 1.5 1.0 Basophils % 0.6 0.2 Neutrophils # 7.9 11.3 H Lymphocytes # 2.9 1.4 Monocytes # 0.9 0.9 Eosinophils # 0.2 0.1 Basophils # 0.1 0.0 Nucleated RBCs/100 WBC Urine Opiates Screen Negative Ur Barbiturates Screen Negative Ur Phencyclidine Scrn Negative Ur Amphetamines Screen Negative U Benzodiazepines Scrn Negative Urine Cocaine Screen Negative U Marijuana (THC) Screen Negative Ur Drug Screen Interp See Below 05/19/18 06:09 WBC 13.0 H RBC 3.36 L Hgb 9.1 L Hct 28.8 L MCV 85.7 MCH 27.1 L MCHC 31.6 RDW 14.4 Plt Count 168 MPV 11.3 Immature Gran % 2.1 Seg Neutrophils % 64.9 Lymphocytes % 24.2 Monocytes % 6.5 Eosinophils % 1.9 Basophils % 0.4 Neutrophils # 8.4 Lymphocytes # 3.1 Monocytes # 0.9 Eosinophils # 0.3 Basophils # 0.1 Nucleated RBCs/100 WBC 0.2 H Urine Opiates Screen Ur Barbiturates Screen Ur Phencyclidine Scrn Ur Amphetamines Screen U Benzodiazepines Scrn Urine Cocaine Screen U Marijuana (THC) Screen Ur Drug Screen Interp Labs on day of discharge: Labs from last 24 hours 05/19/18 06:09 WBC 13.0 H RBC 3.36 L Hgb 9.1 L Hct 28.8 L MCV 85.7 MCH 27.1 L MCHC 31.6 RDW 14.4 Plt Count 168 MPV 11.3 Immature Gran % 2.1 Seg Neutrophils % 64.9 Lymphocytes % 24.2 Monocytes % 6.5 Eosinophils % 1.9 Basophils % 0.4 Neutrophils # 8.4 Lymphocytes # 3.1 Monocytes # 0.9 Eosinophils # 0.3 Basophils # 0.1 Nucleated RBCs/100 WBC 0.2 H Date of admission: 05/17/18 09:42 Primary care physician: PCP NONE Discharging clinician: Juliana Lieberman Anticipated date of discharge: 05/19/18 - Patient Status Disposition: Home, Self-Care Condition: Good Functional capacity at discharge: independent ambulation Overall status at discharge: patient is progressing back to baseline - Discharge Instructions Follow Up With: NONE,PCP [Primary Care Provider] - Olena Mendoza [Partnered Physician] - - Diet and Activity Activity: increase activity as tolerated Diet: regular diet Hospital Course Reason for admission: section Delivery: section Episiotomy: none Laceration: none Other procedures: none complications: none Discharge diagnosis: IUP at term delivered baby: female Hospital course: - Date of procedure: 05/17/18 Preop diagnosis: other (1. Elective primary section 2. 39.3 weeks gestational age 3. Left hip pain) Post-op diagnosis: same Procedure: section, primary low transverse Surgeon: Olena Mendoza Quantitated Blood Loss: 350 Was there an speech therapy assistant present: Yes General Manager Land Department: Zenobia Hartley Block Trader: Vel Lima Anesthesia Type: Spinal section complications: none Disposition: L&D Recovery Room Specimens: Placenta - (s) A Infant Delivery Date: 05/17/18 Infant Delivery Time: 12:41 Presentation: vertex Position: ROT Gender: Female Viability: Viable Pounds: 7 Ounces: 12 Gram Weight: 3.525 kg at 1 minute: 9 at 5 minutes: 10 Shoulder Dystocia: not encountered Placenta: spontaneous Cord: 3 umbilical vessels Time Attestation: Total time spent providing and/or coordinating discharge services: Time Spent: Less than 30 minutes - VTE Reasons for not Prescribing Prophylaxis: Treatment not Indicated - Low risk for VTE (SCDs post-op until ambulating) Documentation of Mechanical Device: Intermittent pneumatic compression device Exam - Constitutional Vitals: Temp Pulse Resp BP Pulse Ox 97.4 F L 84 16 102/64 98 05/19/18 09:18 05/19/18 09:18 05/19/18 09:18 05/19/18 09:18 05/19/18 09:18 General appearance IM: A&O X 3, no acute distress - Respiratory Respiratory exam: Present: CTAB - Cardiovascular Cardiovascular exam IM: Present: RRR - GI/Abdominal GI/Abdominal exam IM: distended (mildly distended and tympanic), normal bowel sounds, soft, no peritoneal signs Incision: intact Additional comments: no s/sx infection - Uterine Tone: Firm Uterus Position: 2 Fingers Below Umbilicus - Extremities Exam Extremities exam IM: Present: normal inspection, pedal edema (mild edema bilaterally) - Neurological Exam Neurological exam: normal gait, oriented X3 - Psychiatric Additional comments: reports great mood - Other Additional findings: desires depo for contraception. OARRS reviewed
== END 2018-05-19 12:30 | disposition home or self-care (01) | DRG 540 ==
LOC: 1NENULAB 09:42 → 1NENUOBS 15:16
PROVIDERS: ADMIT Obstetrics & Gynecology; ATTEND Obstetrics & Gynecology